=== PATIENT | male | born 1995 | race Caucasian/White ===

== ENCOUNTER 2023-01-21 04:59 | Emergency (ER) | payer BC, OTHER ==
[2023-01-21] MEDS ORDERED: MOTRIN 400 MG PO ONE (06:05)
[2023-01-21] MEDS ORDERED: TYLENOL 325 MG PO ONE (06:05)
[2023-01-21] MEDS ORDERED: MOTRIN 400 MG ONE (06:08)
[2023-01-21] MEDS ORDERED: TYLENOL 325 MG ONE (06:08)
--- NOTE | 2023-01-21 06:11 | ERPHSYRPT ---
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 redness and pain to rt forehead Triage Nursing Assessment: pt alert and oriented, answers questions approp. pt ambulatory with steady gait noted. respirations nonalbored. skin warm and dry. red sweollen area to rt forehead. pupils euqal and reactive. 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 This occurred prior to arrival. There is no loss of consciousness. Patient does have a headache. Occurred: just prior to arrival Severity: mild (To moderate) Head Injury Location: frontal Loss of Consciousness: no loss of consciousness Associated Symptoms: headaches, No nausea, No vomiting, No shortness of breath, No chest pain, No seizure Allergies/Adverse Reactions: No Known Drug Allergies Allergy (Verified 01/21/23 05:19) Hx Tetanus, Diphtheria Vaccination/Date Given: Yes Hx Influenza Vaccination/Date Given: No Hx Pneumococcal Vaccination/Date Given: No Immunizations Up to Date: Yes Travel Risk - International Travel Have you traveled outside of the country in past 3 weeks: No - Coronavirus Screening Are you exhibiting any of the following symptoms?: No Close contact with a COVID-19 positive Pt in past 14-21 Days: No - Vaccine Status Have you recieved a Covid-19 vaccination: Yes Sausage Stuffer: [facility] - Review of Systems Constitutional: No Symptoms Eyes: No Symptoms Ears, Nose, & Throat: No Symptoms Respiratory: No Symptoms Cardiac: No Symptoms Abdominal/Gastrointestinal: No Symptoms Genitourinary Symptoms: No Symptoms Musculoskeletal: No Symptoms Skin: No Symptoms Neurological: No Symptoms Psychological: No Symptoms Endocrine: No Symptoms Hematologic/Lymphatic: No Symptoms Immunological/Allergic: No Symptoms All Other Systems: Reviewed and Negative - Past Medical History Pertinent Past Medical History: No - Past Surgical History Past Surgical History: Yes Other Surgical History: shoulder surgery with hardware - Social History Smoking Status: Never smoker Exposure to second hand smoke: No Drug Use: none Patient Lives Alone: No - Nursing Vital Signs Nursing Vital Signs: Initial Vital Signs Temperature 97.8 F 01/21/23 05:04 Pulse Rate 89 01/21/23 05:04 Respiratory Rate 16 01/21/23 05:04 Blood Pressure 153/84 01/21/23 05:04 O2 Sat by Pulse Oximetry 96 01/21/23 05:04 Pain Scale Pain Intensity 4 - Jayce Coma Score Best Eye Response (Jayce): (4) open spontaneously Best Verbal Response (Jayce): (5) oriented Best Motor Response (Wilson): (6) obeys commands Jayce Total: 15 - Physical Exam General Appearance: no apparent distress, alert, anxiety Head Injury: swelling (Forehead with redness), tenderness (Forehead) Eye Exam: bilateral eye: normal inspection, PERRL, EOMI, abnormal EOM ENT Exam: airway nml, nml ext.inspection, No evidence of ENT injury Neck Exam: supple, trachea midline, full range of motion, normal alignment Cardiovascular/Respiratory Exam: chest non-tender, no respiratory distress Gastrointestinal/Abdominal Exam: non tender Rectal Exam: not done Back Exam: normal inspection, normal range of motion, No CVA tenderness, No vertebral tenderness Extremity Exam: non-tender, normal range of motion, normal inspection Mental Status Exam: alert, oriented x 3, 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 This patient's medical issue is 1 of low complexity. The work-up and the level of complexity is based on the patient's history of present illness and findings on physical examination. Work-up performed as a CAT scan of the head. There is no other work-up necessary. We did provide the patient with Tylenol and ibuprofen for pain control while awaiting for the CAT scan results. The CAT scan result/impression was reviewed by me. Discharge planning is activity as tolerated, Tylenol ibuprofen for pain control. Follow-up with primary care provider for persistent symptoms. Return to the emergency department if symptoms worsen. Counseled pt/family regarding: diagnosis, need for follow-up, rad results Medical Desision Making - Discussion of managment Reviewed:: Test results Agreed on:: Treatment plan, need for follow-up - Diagnostic Testing Diagnostic test were ordered, analyzed, and reviewed by me: Yes Radiological Interpretation: Reviewed by me, Teleradiologist Report - Risk of complications Low Risk: Low risk of morbidity from additional dx testing or treatment - Departure Departure Disposition: Home Clinical Impression: Head injury Condition: Stable Critical Care Time: No Referrals: DOCTOR,NO FAMILY [Primary Care Provider] - Follow up/PCP as directed Additional Instructions: Ice pack to tender area 3 times a day for the next 48 hours. Use Tylenol and ibuprofen for pain control. Follow-up with your primary care physician for persistent, mild symptoms. Return to the emergency department if symptoms worsen.
[2023-01-21 06:37] VITALS: BP 133/77; PULSE 81; O2SAT 98
--- NOTE | 2023-01-21 09:03 | XRAY ---
Indication: Nausea and headache following frontal head injury. Multiple contiguous axial images obtained through the head without contrast. Comparison: None Normal appearing brain parenchyma, ventricles, and bony calvarium. Mild mucosal thickening both ethmoid sinuses with tiny fluid leveling right maxillary sinus. Mastoid air cells are clear. Impression: Normal CT head without contrast exam. Incidental paranasal sinus disease. Comment: Preliminary interpretation made by [facility]. No critical discrepancy.
== END 2023-01-21 06:35 | disposition home or self-care (01) ==
LOC: ED 04:59
DX: S09.90XA Unspecified injury of head, initial encounter (principal); V83.5XXA Driver of special industrial vehicle injured in nontraffic accident, initial encounter; Y99.0 Civilian activity done for income or pay; R51.9 Headache, unspecified
CPT/HCPCS: 70450; 99283; A9270-GY